=== PATIENT | female | born 1945 | race Caucasian/White ===

== ENCOUNTER 2018-07-26 20:27 | Emergency (ER) | payer OTHER ==
[~2018-07-26] VITALS: Ht 167.6 cm; Wt 118.2 kg
[~2018-07-26 20:27] MED LIST: ESTR0.5T PO; GABA300C10 PO; LEVO125T5 PO; LISI1TAB3 PO; MYCO250C PO; OMEP-110 PO; PREG50CA PO; SERT50TA PO; TACR0.5C4 PO; TRAM50TA2 PO; [UNRECOGNIZED DRUG - REMARK] PO
[2018-07-26] MEDS ORDERED: HYDROcodone/APAP 5/325 TABLET ONE (21:24)
[2018-07-26] MEDS ORDERED: HYDROcodone/APAP 5/325 TABLET PO ONE (21:30)
[2018-07-26] MEDS ORDERED: KETOROLAC 30 MG/1 ML ONE (22:22)
[2018-07-26] MEDS ORDERED: KETOROLAC 30 MG/1 ML IM ONE (22:30)
[2018-07-26 23:15] VITALS: BP 116/51
== END 2018-07-26 23:16 | disposition home or self-care (01) ==
LOC: ED 22:32
DX: S20.212A Contusion of left front wall of thorax, initial encounter (principal); S70.02XA Contusion of left hip, initial encounter; K21.9 Gastro-esophageal reflux disease without esophagitis; I10 Essential (primary) hypertension; M32.9 Systemic lupus erythematosus, unspecified; M35.00 Sjogren syndrome, unspecified; Z94.4 Liver transplant status; W18.2XXA Fall in (into) shower or empty bathtub, initial encounter; Y93.89 Activity, other specified; Y92.091 Bathroom in other non-institutional residence as the place of occurrence of the external cause; Y99.8 Other external cause status
CPT/HCPCS: 71101; 73502; 96372; 99284; J1885

== ENCOUNTER 2021-02-21 12:39 | Inpatient (IN) | payer MEDICARE ==
[~2021-02-21] VITALS: Ht 167.6 cm; Wt 118.1 kg
[~2021-02-21 12:39] MED LIST changes: +APIX5TAB PO; +HYDR-3237 PO; +LISI1TAB23 PO; -LISI1TAB3 PO
--- NOTE | 2021-02-21 13:17 | NUR ---
PYROTECHNIST: PT TO ROOM FROM LOBBY
--- NOTE | 2021-02-21 13:28 | NUR ---
ERPA AT BEDSIDE FOR EVALUATION.
--- NOTE | 2021-02-21 13:29 | NUR ---
PATIENT WALKED BACK FROM TRIAGE WITH CHIEF C/O LEFT LEG PAIN X3 DAYS. PATIENT UNABLE TO CATCH BREATH SINCE LAST NIGHT, HAS HISTORY OF DVTS. PATIENT REPORTS HAVING A FLARE UP OF HER FIRBROMYALGIA LAST WEEK, AND REPORTS UPPER BACK PAIN BETWEEN THE SHOULDER BLADES. LEFT LEG TENDER TO TOUCH, NO REDNESS OR WARMTH NOTED. PULSES PRESENT BILATERAL LOWER EXTREMITIES. NADN, CONNECTED TO MONITOR, VSS, DAUGHTER AT BEDSIDE, CALL LIGHT WITHIN REACH.
--- NOTE | 2021-02-21 13:43 | NUR ---
IMAGING AT BEDSIDE.
--- NOTE | 2021-02-21 13:58 | NUR ---
ULTRASOUND AT BEDSIDE.
[2021-02-21 14:38] LABS: BASOPHILS % (AUTO) 1 % (0-1); EOSINOPHILS % (AUTO) 2 % (1-7); LYMPHOCYTES % (AUTO) 34 % (22-44); MEAN CORPUSCULAR HEMOGLOBIN 28.1 pg (27.0-34.8); MEAN CORPUSCULAR HGB CONC 32.7 g/dL (32.4-35.8); MEAN PLATELET VOLUME 8.7 fL (7.4-10.4); MONOCYTES % (AUTO) 10 % (2-9); NEUTROPHILS % (AUTO) 53 % (42-75); PLATELET COUNT 176 x10^3/uL (130-400); RED BLOOD COUNT 4.23 x10^6/uL (3.82-5.3); RED CELL DISTRIBUTION WIDTH 14.9 % (9.6-15.2)
[2021-02-21 14:42] LABS: MD NO
[2021-02-21 14:47] LABS: ALANINE AMINOTRANSFERASE 26 U/L (12-78); ALBUMIN 3.6 g/dL (3.4-5.0); ANION GAP 7 mmol/L (5-15); CALCIUM 8.7 mg/dL (8.5-10.1); CHLORIDE 112 mmol/L (98-107); CREATININE 1.99 mg/dL (0.55-1.02)
[2021-02-21 14:49] LABS: ALKALINE PHOSPHATASE 70 U/L (45-117); BILIRUBIN,TOTAL 0.2 mg/dL (0.2-1.0); TOTAL PROTEIN 7.1 g/dL (6.4-8.2)
--- NOTE | 2021-02-21 14:51 | NUR ---
[place] [facility] [place]
--- NOTE | 2021-02-21 14:56 | NUR ---
URINE SAMPLE COLLECTED AND WALKED TO LAB, VSS, NADN, CALL LIGHT WITHIN REACH.
--- NOTE | 2021-02-21 15:21 | NUR ---
20 GAUGE IV STARTED LEFT AC, NS BOLUS HUNG, VSS,CALL LIGHT WITHIN REACH. WAITING FOR UA RESULTS.
[2021-02-21] MEDS ORDERED: METHOCARBAMOL 750 MG TABLET ONE (15:27)
[2021-02-21 15:29] LABS: MICROSCOPIC INDICATED
[2021-02-21] MEDS ORDERED: SODIUM CHLORIDE 0.9% 1,000ML IVBOLUS ONE (15:30)
[2021-02-21] MEDS ORDERED: METHOCARBAMOL 750 MG TABLET PO ONE (15:30)
--- NOTE | 2021-02-21 16:28 | NUR ---
ERPA AT BEDSIDE TO DISCUSS POC.
[2021-02-21] MEDS ORDERED: HYDROmorphone 1 MG/ML, 1ML INJ ONE (16:49)
--- NOTE | 2021-02-21 16:55 | NUR ---
DR. OTOOLE AT BEDSIDE FOR ADMISSION EVALUATION.
[2021-02-21] MEDS ORDERED: HYDROmorphone 1 MG/ML, 1ML INJ IV ONE (17:00)
[2021-02-21] MEDS ORDERED: CEFTRIAXONE 1,000 MG in DEXTROSE 5% 50 ML IVPB ONE (17:00)
[2021-02-21] MEDS ORDERED: MYCO500T3 PO (17:08)
[2021-02-21] MEDS ORDERED: LISI-167 PO (17:08)
[2021-02-21] MEDS ORDERED: PREG100C PO (17:08)
[2021-02-21] MEDS ORDERED: ALLO100T30 PO (17:08)
--- NOTE | 2021-02-21 17:19 | NUR ---
DINNER TRAY ORDERED.
[2021-02-21] MEDS ORDERED: POLYETHYLENE GLYCOL 17 GM PACKET PO PRN (17:30)
[2021-02-21] MEDS ORDERED: ACETAMINOPHEN 325 MG TABLET PO PRN (17:30)
[2021-02-21] MEDS ORDERED: morphine SULFATE 10 MG/ML, 1ML IVPush PRN (17:30)
[2021-02-21] MEDS ORDERED: ONDANSETRON 2MG/ML, 2ML IVPush PRN (17:30)
[2021-02-21] MEDS ORDERED: hydrALAzine 20 MG/ML, 1ML IVPush PRN (17:30)
[2021-02-21] MEDS ORDERED: OXYcodone IR 5MG TABLET PO PRN (17:30)
[2021-02-21] MEDS ORDERED: BISACODYL 10 MG SUPP PR PRN (17:30)
[2021-02-21] MEDS ORDERED: ONDANSETRON ODT 4 MG PO PRN (17:30)
[2021-02-21] MEDS ORDERED: METHOCARBAMOL 500 MG TABLET PO PRN (17:30)
[2021-02-21] MEDS ORDERED: PROMETHAZINE 25 MG/ML, 1ML IM PRN (17:30)
[2021-02-21] MEDS ORDERED: ONDANSETRON 2MG/ML, 2ML ONE (18:00)
--- NOTE | 2021-02-21 18:06 | NUR ---
PATIENT TRANSFERRED TO FLOOR VIA GURNEY WITH SUPERVISOR [employer]SEM[employer], ALL PATIENT BELONINGS TAKEN WITH PATIENT TO FLOOR, DAUGHTER AT BEDSIDE.
[2021-02-21] MEDS: SODIUM CHLORIDE 0.9% 1,000 ML IV SCH (18:36)
[2021-02-21] MEDS: GABAPENTIN 100 MG CAPSULE PO SCH ×2 (18:36→19:22)
[2021-02-21 21:19] VITALS: BP 103/62
[2021-02-21] MEDS: APIXABAN 5 MG TABLET PO SCH (21:29)
[2021-02-21] MEDS: SERTRALINE 50MG TABLET PO SCH (21:29)
[2021-02-21] MEDS: PREGABALIN 100 MG CAPSULE PO SCH (21:29)
[2021-02-22 01:23] VITALS: BP 95/56
[2021-02-22 01:50] VITALS: BP 99/57
[2021-02-22] MEDS: SODIUM CHLORIDE 0.9% 1,000 ML IV SCH (03:57)
[2021-02-22] MEDS ORDERED: PREG150C PO (04:19)
[2021-02-22 05:53] LABS: BASOPHILS % (AUTO) 1 % (0-1); EOSINOPHILS % (AUTO) 4 % (1-7); LYMPHOCYTES % (AUTO) 36 % (22-44); MEAN CORPUSCULAR HEMOGLOBIN 28.3 pg (27.0-34.8); MEAN CORPUSCULAR HGB CONC 32.9 g/dL (32.4-35.8); MEAN PLATELET VOLUME 8.7 fL (7.4-10.4); MONOCYTES % (AUTO) 11 % (2-9); NEUTROPHILS % (AUTO) 49 % (42-75); PLATELET COUNT 153 x10^3/uL (130-400); RED BLOOD COUNT 3.78 x10^6/uL (3.82-5.3); RED CELL DISTRIBUTION WIDTH 14.7 % (9.6-15.2)
[2021-02-22 05:59] LABS: MD NO
[2021-02-22] MEDS: LEVOTHYROXINE 125 MCG TABLET PO SCH (06:02)
[2021-02-22] MEDS: OMEPRAZOLE 20 MG CAPSULE.DR PO SCH (06:02)
[2021-02-22 06:05] LABS: ALANINE AMINOTRANSFERASE 23 U/L (12-78); ALBUMIN 3.2 g/dL (3.4-5.0); ANION GAP 7 mmol/L (5-15); CALCIUM 8.1 mg/dL (8.5-10.1); CHLORIDE 115 mmol/L (98-107); CREATININE 1.54 mg/dL (0.55-1.02)
[2021-02-22 06:29] LABS: ALKALINE PHOSPHATASE 75 U/L (45-117); BILIRUBIN,TOTAL 0.3 mg/dL (0.2-1.0); CHOL/HDL RATIO 4.5; CHOLESTEROL, TOTAL 130 mg/dL (140-239); HDL CHOL % 22 % (28-40); HDL CHOLESTEROL (DIRECT) 29 mg/dL (40-60); LDL CHOLESTEROL,CALCULATED 77 mg/dL (54-169); LDL/HDL RATIO 2.7 (0.5-3.0); TOTAL PROTEIN 6.2 g/dL (6.4-8.2); TRIGLYCERIDES 120 mg/dL (50-200); VLDL CHOLESTEROL 24 mg/dL (0-25)
[2021-02-22 07:02] VITALS: BP 103/67
[2021-02-22] MEDS: LISINOPRIL 10 MG TABLET PO SCH (08:22)
[2021-02-22] MEDS: GABAPENTIN 100 MG CAPSULE PO SCH ×3 (08:23→20:07)
[2021-02-22] MEDS: TACROLIMUS 0.5 MG CAPSULE PO SCH (08:23)
[2021-02-22] MEDS: PREGABALIN 100 MG CAPSULE PO SCH ×3 (08:23→20:07)
[2021-02-22] MEDS: ALLOPURINOL 100 MG TABLET PO SCH (08:23)
[2021-02-22] MEDS: SENNA/DOCUSATE TABLET PO SCH (08:23)
[2021-02-22] MEDS: APIXABAN 5 MG TABLET PO SCH ×2 (08:23→20:08)
[2021-02-22] MEDS ORDERED: D5%-0.45% NACL 1,000 ML IV SCH (08:30)
[2021-02-22] MEDS: D5%-0.45% NACL 1,000 ML IV SCH (08:35)
[2021-02-22] MEDS ORDERED: SERTRALINE 50MG TABLET PO SCH (09:00)
[2021-02-22 14:31] VITALS: BP 107/69
[2021-02-22] MEDS ORDERED: GADOTERATE 7.5 MMOL/15ML SYR ONE (18:00)
[2021-02-22] MEDS ORDERED: GADOTERATE 5 MMOL/10ML SYR ONE (18:00)
[2021-02-22 19:51] VITALS: BP 120/71
[2021-02-22] MEDS: SERTRALINE 50MG TABLET PO SCH (20:08)
[2021-02-23] MEDS: D5%-0.45% NACL 1,000 ML IV SCH (00:09)
[2021-02-23 00:10] VITALS: BP 116/72
[2021-02-23] MEDS: OMEPRAZOLE 20 MG CAPSULE.DR PO SCH (06:05)
[2021-02-23] MEDS: LEVOTHYROXINE 125 MCG TABLET PO SCH (06:05)
[2021-02-23 06:13] LABS: ANION GAP 7 mmol/L (5-15); CALCIUM 8.5 mg/dL (8.5-10.1); CHLORIDE 114 mmol/L (98-107)
[2021-02-23 06:14] LABS: CREATININE 1.34 mg/dL (0.55-1.02)
[2021-02-23 07:52] VITALS: BP 124/77
[2021-02-23] MEDS ORDERED: MAGNESIUM SULFATE PMX 4GM/100M 100 ML IVPB ONE (08:30)
[2021-02-23] MEDS: ALLOPURINOL 100 MG TABLET PO SCH (09:02)
[2021-02-23] MEDS: TACROLIMUS 0.5 MG CAPSULE PO SCH (09:02)
[2021-02-23] MEDS: LISINOPRIL 10 MG TABLET PO SCH (09:02)
[2021-02-23] MEDS: APIXABAN 5 MG TABLET PO SCH (09:02)
[2021-02-23] MEDS: PREGABALIN 100 MG CAPSULE PO SCH (09:02)
[2021-02-23] MEDS: SENNA/DOCUSATE TABLET PO SCH (09:03)
[2021-02-23] MEDS: GABAPENTIN 100 MG CAPSULE PO SCH (09:03)
[2021-02-23] MEDS ORDERED: GABA-826 PO (12:05)
== END 2021-02-23 15:12 | disposition home or self-care (01) | DRG 683 ==
LOC: ED 14:10 → EDIP 16:31 → 3N 18:08
PROVIDERS: ADMIT Internal Medicine; ATTEND Internal Medicine
DX: N17.0 Acute kidney failure with tubular necrosis (principal); D84.9 Immunodeficiency, unspecified; E87.2 Acidosis; N39.0 Urinary tract infection, site not specified; Z68.41 Body mass index [BMI] 40.0-44.9, adult; Z94.4 Liver transplant status; E86.0 Dehydration; E03.9 Hypothyroidism, unspecified; E66.9 Obesity, unspecified; I12.9 Hypertensive chronic kidney disease with stage 1 through stage 4 chronic kidney disease, or unspecified chronic kidney disease; M35.00 Sjogren syndrome, unspecified; M79.7 Fibromyalgia; N18.30 Chronic kidney disease, stage 3 unspecified; Z79.01 Long term (current) use of anticoagulants; Z86.718 Personal history of other venous thrombosis and embolism; D64.9 Anemia, unspecified; K21.9 Gastro-esophageal reflux disease without esophagitis; M10.9 Gout, unspecified; M79.652 Pain in left thigh; M32.9 Systemic lupus erythematosus, unspecified; M51.36 Other intervertebral disc degeneration, lumbar region
CPT/HCPCS: 36415; 71045; 72157; 72158; 80048; 80053; 80061; 81001; 82306; 82607; 83036; 83735; 84100; 84443; 85025; 87086; 93005; 96361; 96365; 96375; 99285; G0378; J0696; J1170; J2405; J7507; A9575; J2270; J3475; J7030; J7517